=== PATIENT | female | born 1965 | race Caucasian/White ===

== ENCOUNTER 2018-05-23 11:32 | Inpatient (IN) | payer BC ==
[~2018-05-23] VITALS: Ht 167.6 cm; Wt 83.6 kg
[2018-05-23 12:26] LABS: BASO # 0.1 x10^3/uL (0.0-0.2); BASO % 1 % (0-3); EOS # 0.3 x10^3/uL (0.0-0.7); EOS % 4 % (0-3); HEMATOCRIT 33.9 % (36.0-47.0); LYMPH # 1.8 x10^3/uL (1.0-4.8); LYMPH % 24 % (24-48); MEAN CORPUSCULAR HEMOGLOBIN 26 pg (25-35); MEAN CORPUSCULAR HGB CONC 32 g/dL (31-37); MEAN CORPUSCULAR VOLUME 79 fL (79-100); MONO # 0.4 x10^3/uL (0.0-1.1); MONO % 5 % (0-9); NEUT # 5.2 x10^3uL (1.8-7.7); NEUT % 67 % (31-73); PLATELET COUNT 242 x10^3/uL (140-400); RED CELL DISTRIBUTION WIDTH 19.7 % (11.5-14.5); WHITE BLOOD COUNT 7.7 x10^3/uL (4.0-11.0)
[2018-05-23 12:34] LABS: CALCIUM 8.9 mg/dL (8.5-10.1); GFR 58.2; POTASSIUM 4.3 mmol/L (3.5-5.1)
[2018-05-23 12:37] LABS: BILIRUBIN,URINE NEGATIVE (NEG); CLARITY,URINE CLEAR; COLOR,URINE YELLOW; NITRITE,URINE NEGATIVE (NEG); PROTEIN,URINE NEGATIVE (NEG-TRACE); UROBILINOGEN,URINE 0.2 mg/dL (0.2 mg/dL)
[2018-05-23 12:40] LABS: ALBUMIN 3.8 g/dL (3.4-5.0); ALBUMIN/GLOBULIN RATIO 1.4 (1.0-1.7); MAGNESIUM 2.3 mg/dL (1.8-2.4); TOTAL BILIRUBIN 0.2 mg/dL (0.2-1.0); TOTAL PROTEIN 6.6 g/dL (6.4-8.2)
[2018-05-23 12:44] LABS: BACTERIA,URINE FEW /HPF (0-FEW); RBC,URINE 0 /HPF (0-2); WBC,URINE OCC /HPF (0-4)
--- NOTE | 2018-05-23 12:45 | RAD ---
CT of the head without contrast and without comparison for dizziness, nausea, vomiting, false x2. TECHNIQUE: Contiguous helical 5 mm axial images are obtained from the skull base to the vertex. No IV contrast was administered. FINDINGS: There is no evidence of acute territorial infarction, or intracranial hemorrhage. There is no mass, mass effect, or midline shift. The ventricles and subarachnoid spaces are grossly unremarkable. No extra-axial fluid collections are identified. The posterior fossa, brainstem, bilateral orbits, mastoid air cells, and visualized paranasal sinuses are all unremarkable. No significant osseous anomalies are seen. IMPRESSION: 1. No acute intracranial abnormality. Electronically signed by: Art Triplett MD (05/23/2018 12:40 PM) [id number]
--- NOTE | 2018-05-23 12:55 | EKG ---
[facility] [address] [place] [address] Test Date: 2018-05-23 Test Time: 11:59:26 Pat Name: INDER MCKINNON Department: Room: Gender: F Line Server: : 1965 Requested By: PARIS BANKS Order Number: [id number] Reading MD: Measurements Intervals [place] Rate: 60 P: 27 [place]: 180 QRS: -7 QRSD: 78 T: 23 QT: 452 QTc: 456 Interpretive Statements SINUS RHYTHM LEFTWARD AXIS OTHERWISE NORMAL ECG No previous ECG available for comparison
--- NOTE | 2018-05-23 13:05 | RAD ---
PORTABLE CHEST 1V History: DIZZINESS AND FALLS X 2 DAYS. Comparison: None. Cardiomediastinal silhouette: Not grossly enlarged. Lungs: No focal airspace consolidation. Pleura: No evidence of pleural effusion. Pneumothorax: None visualized Support Devices: None. Impression: No acute radiographic findings. Electronically signed by: Chinmay Blair MD (05/23/2018 1:01 PM) [id number]
--- NOTE | 2018-05-23 13:59 | PHYS DOC ---
Past Medical History Past Medical History: Arthritis, DVT, GI Bleed, P.U.D., Other Additional Past Medical Histor: H.PYLORI,ELLERSDEN LOW SYNDROME Past Surgical History: Cholecystectomy, Hysterectomy, Other Additional Past Surgical Histo: R ARM/THUMB,ORIF L HAND Alcohol Use: None Drug Use: None Adult General Chief Complaint Chief Complaint: DIZZY/LIGHT HEADED HPI HPI Patient is a 52 year old female presented to ER today for evaluation of dizziness and shortness of air for a few day. She said whenever she got up and walk, she feels like she will fall due to left-sided weakness. Patient denies any headache. Patient has history of DVT, blood clots in her lung. She is on Eliquis. She denies any abdominal pain, no nausea vomiting. She denies any chest pain. Review of Systems Review of Systems Constitutional: Denies fever or chills [] Eyes: Denies change in visual acuity, redness, or eye pain [] HENT: Denies nasal congestion or sore throat [] Respiratory: Positive for shortness of breath [] Cardiovascular: No additional information not addressed in HPI [] GI: Denies abdominal pain, nausea, vomiting, bloody stools or diarrhea [] : Denies dysuria or hematuria [] Musculoskeletal: Denies back pain or joint pain [] Integument: Denies rash or skin lesions [] Neurologic: Denies headache, focal weakness or sensory changes. POSITIVE FOR DIZZINESS, LEFT SIDE WEAKNESS Endocrine: Denies polyuria or polydipsia [] All other systems were reviewed and found to be within normal limits, except as documented in this note. Current Medications Current Medications Current Medications Medications (Trade) Dose Ordered Sig/Pily Start Time Stop Time Status Last Admin Dose Admin Info (CONTRAST GIVEN -- Rx MONITORING) 1 each PRN DAILY PRN 05/23/18 14:15 05/25/18 14:14 Iohexol (Omnipaque 300 Mg/ml) 100 ml 1X ONCE 05/23/18 14:15 05/23/18 14:16 DC 05/23/18 14:30 100 ML Ondansetron HCl (Zofran) 4 mg PRN Q8HRS PRN 05/23/18 15:15 05/24/18 15:14 Allergies Allergies Allergies Coded Allergies Type Severity Reaction Last Updated Verified Penicillins Allergy Unknown 05/23/18 Yes Physical Exam Physical Exam Constitutional: Well developed, well nourished, no acute distress, non-toxic appearance. [] HENT: Normocephalic, atraumatic, bilateral external ears normal, oropharynx moist, no oral exudates, nose normal. [] Eyes: PERRLA, EOMI, conjunctiva normal, no discharge. [] Neck: Normal range of motion, no tenderness, supple, no stridor. [] Cardiovascular:Heart rate regular rhythm, no murmur [] Lungs & Thorax: Bilateral breath sounds clear to auscultation [] Abdomen: Bowel sounds normal, soft, no tenderness, no masses, no pulsatile masses. [] Skin: Warm, dry, no erythema, no rash. [] Back: No tenderness, no CVA tenderness. [] Extremities: No tenderness, no cyanosis, no clubbing, ROM intact, no edema. [] Neurologic: Alert and oriented X 3, normal motor function, normal sensory function, no focal deficits noted. [] Psychologic: Affect normal, judgement normal, mood normal. [] Current Patient Data Vital Signs Vital Signs Date Time Temp Pulse Resp B/P (MAP) Pulse Ox O2 Delivery O2 Flow Rate FiO2 05/23/18 12:14 62 12 100 05/23/18 11:40 98.3 136/78 (97) Room Air 98.3 Lab Values Laboratory Tests Test 05/23/18 11:56 05/23/18 12:05 05/23/18 12:30 Glucose (Fingerstick) 91 mg/dL (70-99) White Blood Count 7.7 x10^3/uL (4.0-11.0) Red Blood Count 4.30 x10^6/uL (3.50-5.40) Hemoglobin 11.0 g/dL (12.0-15.5) L Hematocrit 33.9 % (36.0-47.0) L Mean Corpuscular Volume 79 fL (79-100) Mean Corpuscular Hemoglobin 26 pg (25-35) Mean Corpuscular Hemoglobin Concent 32 g/dL (31-37) Red Cell Distribution Width 19.7 % (11.5-14.5) H Platelet Count 242 x10^3/uL (140-400) Neutrophils (%) (Auto) 67 % (31-73) Lymphocytes (%) (Auto) 24 % (24-48) Monocytes (%) (Auto) 5 % (0-9) Eosinophils (%) (Auto) 4 % (0-3) H Basophils (%) (Auto) 1 % (0-3) Neutrophils # (Auto) 5.2 x10^3uL (1.8-7.7) Lymphocytes # (Auto) 1.8 x10^3/uL (1.0-4.8) Monocytes # (Auto) 0.4 x10^3/uL (0.0-1.1) Eosinophils # (Auto) 0.3 x10^3/uL (0.0-0.7) Basophils # (Auto) 0.1 x10^3/uL (0.0-0.2) Sodium Level 144 mmol/L (136-145) Potassium Level 4.3 mmol/L (3.5-5.1) Chloride Level 105 mmol/L (98-107) Carbon Dioxide Level 30 mmol/L (21-32) Anion Gap 9 (6-14) Blood Urea Nitrogen 13 mg/dL (7-20) Creatinine 1.0 mg/dL (0.6-1.0) Estimated GFR (Cockcroft-Gault) 58.2 BUN/Creatinine Ratio 13 (6-20) Glucose Level 98 mg/dL (70-99) Calcium Level 8.9 mg/dL (8.5-10.1) Magnesium Level 2.3 mg/dL (1.8-2.4) Total Bilirubin 0.2 mg/dL (0.2-1.0) Aspartate Amino Transferase (AST) 12 U/L (15-37) L Alanine Aminotransferase (ALT) 16 U/L (14-59) Alkaline Phosphatase 139 U/L (46-116) H Troponin I Quantitative < 0.017 ng/mL (0.000-0.055) Total Protein 6.6 g/dL (6.4-8.2) Albumin 3.8 g/dL (3.4-5.0) Albumin/Globulin Ratio 1.4 (1.0-1.7) Urine Collection Type Unknown Urine Color Yellow Urine Clarity Clear Urine pH 7.0 Urine Specific [place] 1.010 Urine Protein Negative mg/dL (NEG-TRACE) Urine Glucose (UA) Negative mg/dL (NEG) Urine Ketones (Stick) Negative mg/dL (NEG) Urine Blood Negative (NEG) Urine Nitrite Negative (NEG) Urine Bilirubin Negative (NEG) Urine Urobilinogen Dipstick 0.2 mg/dL (0.2 mg/dL) Urine Leukocyte Esterase Trace (NEG) Urine RBC 0 /HPF (0-2) Urine WBC Occ /HPF (0-4) Urine Bacteria Few /HPF (0-FEW) Laboratory Tests 05/23/18 12:05 Laboratory Tests 05/23/18 12:05 EKG EKG EKG: RATE OF 61 BPM, SINUS RHYTHM, NO STEMI. Radiology/Procedures Radiology/Procedures [][address] [address] IMAGING REPORT Signed PATIENT: INDER MCKINNON ACCOUNT: [id number] : 1965 LOCATION: ER AGE: 52 SEX: F EXAM STATUS: PRE ER ORD. PHYSICIAN: PARIS BANKS DO REASON: DIZZINESS PROCEDURE: CT HEAD WO CONTRAST CT of the head without contrast and without comparison for dizziness, nausea, vomiting, false x2. TECHNIQUE: Contiguous helical 5 mm axial images are obtained from the skull base to the vertex. No IV contrast was administered. FINDINGS: There is no evidence of acute territorial infarction, or intracranial hemorrhage. There is no mass, mass effect, or midline shift. The ventricles and subarachnoid spaces are grossly unremarkable. No extra-axial fluid collections are identified. The posterior fossa, brainstem, bilateral orbits, mastoid air cells, and visualized paranasal sinuses are all unremarkable. No significant osseous anomalies are seen. IMPRESSION: 1. No acute intracranial abnormality. Electronically signed by: Art Estrada MD (05/23/2018 12:40 PM) [facility] DICTATED and SIGNED BY: ART ESTRADA MD DATE: 05/23/[address] [id number] IMAGING REPORT Signed PATIENT: INDER MCKINNON ACCOUNT: [id number] : 1965 LOCATION: ER AGE: 52 SEX: F EXAM STATUS: REG ER ORD. PHYSICIAN: PARIS BANKS DO REASON: SHORTNESS OF AIR, DIZZINESS, SYNCOPE, HX OF PE PROCEDURE: CT ANGIOGRAPHY CHEST Examination: CT angiography chest HISTORY: History of pulmonary embolism, dizziness COMPARISON: None available Exposure: One or more of the following individualized dose reduction techniques were utilized for this examination: 1. Automated exposure control 2. Adjustment of the mA and/or kV according to patient size 3. Use of iterative reconstruction technique TECHNIQUE: Axial CT angiography images of chest were performed with IV contrast. Coronal and sagittal 3-D MIP reformats are performed FINDINGS: The central airways are patent. The heart size grossly appears unremarkable. The ascending aorta measures 4 cm in transverse dimension. There is no evidence of filling defect identified in the main pulmonary arterial trunk and right and left main pulmonary arteries and the visualized lobar, segmental branches of the pulmonary arteries. Minimal bibasilar lung atelectasis. The visualized liver, spleen, adrenals grossly appears unremarkable. Mild degenerative changes thoracic spine. IMPRESSION: 1. No evidence of pulmonary embolism. 2. Mild ascending aortic aneurysm. Electronically signed by: Nelson Terrazas MD (05/23/2018 2:44 PM) [id number] DICTATED and SIGNED BY: NELSON TERRAZAS MD DATE: 05/23/18 1438 Course & Med Decision Making Course & Med Decision Making Pertinent Labs and Imaging studies reviewed. (See chart for details) [] Dragon Disclaimer Dragon Disclaimer This electronic medical record was generated, in whole or in part, using a voice recognition dictation system. Departure Departure Impression: Primary Impression: Dizziness Additional Impressions: Dyspnea Left-sided weakness Disposition: 09 ADMITTED INPATIENT Admitting Physician: Brown Velez Problem Qualifiers PARIS BANKS DO May 23, 2018 13:59
[2018-05-23] MEDS ORDERED: IOHEXOL 300 MG/ML 100ML VIAL. IV ONE (14:15)
[2018-05-23] MEDS ORDERED: CONTRAST GIVEN. MC PRN (14:15)
--- NOTE | 2018-05-23 14:48 | RAD ---
Examination: CT angiography chest HISTORY: History of pulmonary embolism, dizziness COMPARISON: None available Exposure: One or more of the following individualized dose reduction techniques were utilized for this examination: 1. Automated exposure control 2. Adjustment of the mA and/or kV according to patient size 3. Use of iterative reconstruction technique TECHNIQUE: Axial CT angiography images of chest were performed with IV contrast. Coronal and sagittal 3-D MIP reformats are performed FINDINGS: The central airways are patent. The heart size grossly appears unremarkable. The ascending aorta measures 4 cm in transverse dimension. There is no evidence of filling defect identified in the main pulmonary arterial trunk and right and left main pulmonary arteries and the visualized lobar, segmental branches of the pulmonary arteries. Minimal bibasilar lung atelectasis. The visualized liver, spleen, adrenals grossly appears unremarkable. Mild degenerative changes thoracic spine. IMPRESSION: 1. No evidence of pulmonary embolism. 2. Mild ascending aortic aneurysm. Electronically signed by: Nelson Terrazas MD (05/23/2018 2:44 PM) [id number]
[2018-05-23] MEDS ORDERED: ONDANSETRON PF 4 MG/2 ML VIAL. IV PRN (15:15)
--- NOTE | 2018-05-23 15:40 | PDOC1 ---
History and Physical Date of Admission Date of Admission DATE: 05/23/18 TIME: 15:39 Identification/Chief Complaint Chief Complaint seen in er , 52 year old female presented to ER today for evaluation of dizziness and SOA, FREQUENT FALLS, LEFT SIDED WEAKNESS She said whenever she got up and walk, she feels like she will fall due to left-sided weakness. Patient denies any headache. Patient has history of DVT, blood clots in her lung, is on Eliquis. She denies any abdominal pain, no nausea vomiting. She denies any chest pain., has fallen several times in last 24 hrs Past Medical History Past Medical History Past Medical History Past Medical History: Arthritis, DVT, GI Bleed, P.U.D., Other Additional Past Medical Histor: H.PYLORI,ELLERSDEN LOW SYNDROME Past Surgical History: Cholecystectomy, Hysterectomy, Other Additional Past Surgical Histo: R ARM/THUMB,ORIF L HAND Alcohol Use: None Drug Use: None FAMILY HX OBESITY Pulmonary: Pulmonary embolus Family History Family History: High Cholestrol Family History: Parent Social History Smoke: No ALCOHOL: none Drugs: None Current Problem List Problem List Problems Medical Problems: (1) Dizziness Status: Acute Current Medications Current Medications Current Medications Iohexol (Omnipaque 300 Mg/ml) 100 ml 1X ONCE IV Last administered on at 14:30; Start 05/23/18 at 14:15; Stop 05/23/18 at 14:16; Status DC Info (CONTRAST GIVEN -- Rx MONITORING) 1 each PRN DAILY PRN MC SEE COMMENTS; Start 05/23/18 at 14:15; Stop 05/25/18 at 14:14 Ondansetron HCl (Zofran) 4 mg PRN Q8HRS PRN IV NAUSEA/VOMITING; Start at 15:15; Stop 05/24/18 at 15:14 Allergies Allergies: Coded Allergies: Penicillins (Verified Allergy, Unknown, 05/23/18) ROS Review of System Review of Systems Review of Systems Constitutional: Denies fever or chills [] Eyes: Denies change in visual acuity, redness, or eye pain [] HENT: Denies nasal congestion or sore throat [] Respiratory: Positive for shortness of breath [] Cardiovascular: No additional information not addressed in HPI [] GI: Denies abdominal pain, nausea, vomiting, bloody stools or diarrhea [] : Denies dysuria or hematuria [] Musculoskeletal: Denies back pain or joint pain [] Integument: Denies rash or skin lesions [] Neurologic: Denies headache, focal weakness or sensory changes. POSITIVE FOR DIZZINESS, LEFT SIDE WEAKNESS Endocrine: Denies polyuria or polydipsia [] 14 PT systems were reviewed and found to be within normal limits, except as documented Physical Exam Physical Exam Physical Exam Physical Exam Constitutional: Well developed, well nourished, no acute distress, non-toxic appearance. [] HENT: Normocephalic, atraumatic, bilateral external ears normal, oropharynx moist, no oral exudates, nose normal. [] Eyes: PERRLA, EOMI, conjunctiva normal, no discharge. [] Neck: Normal range of motion, no tenderness, supple, no stridor. [] Cardiovascular:Heart rate regular rhythm, no murmur [] Lungs & Thorax: Bilateral breath sounds clear to auscultation [] Abdomen: Bowel sounds normal, soft, no tenderness, no masses, no pulsatile masses. [] Skin: Warm, dry, no erythema, no rash. [] Back: No tenderness, no CVA tenderness. [] Extremities: No tenderness, no cyanosis, no clubbing, ROM intact, no edema. [] Neurologic: Alert and oriented X 3, normal motor function, normal sensory function, no focal deficits noted. [] Psychologic: Affect normal, judgement normal, mood normal. [] General: Alert, Oriented X3, Cooperative HEENT: Atraumatic, PERRLA Lungs: Clear to auscultation, Normal air movement Heart: S1S2 Breasts: Not examined Abdomen: Normal bowel sounds, Soft Rectal Exam: not examined PELVIC: Examination not indicated Extremities: No clubbing, No cyanosis Skin: No breakdown Neuro: Normal speech, Cranial nerves 3-12 NL Psych/Mental Status: Mental status NL, Mood NL Vitals Vitals Vital Signs Date Time Temp Pulse Resp B/P (MAP) Pulse Ox O2 Delivery O2 Flow Rate FiO2 05/23/18 12:14 62 12 100 05/23/18 11:40 98.3 136/78 (97) Room Air 98.3 Labs Labs Laboratory Tests Test 05/23/18 11:56 05/23/18 12:05 12/21/18 12:30 Glucose (Fingerstick) 91 mg/dL (70-99) White Blood Count 7.7 x10^3/uL (4.0-11.0) Red Blood Count 4.30 x10^6/uL (3.50-5.40) Hemoglobin 11.0 g/dL (12.0-15.5) Hematocrit 33.9 % (36.0-47.0) Mean Corpuscular Volume 79 fL (79-100) Mean Corpuscular Hemoglobin 26 pg (25-35) Mean Corpuscular Hemoglobin Concent 32 g/dL (31-37) Red Cell Distribution Width 19.7 % (11.5-14.5) Platelet Count 242 x10^3/uL (140-400) Neutrophils (%) (Auto) 67 % (31-73) Lymphocytes (%) (Auto) 24 % (24-48) Monocytes (%) (Auto) 5 % (0-9) Eosinophils (%) (Auto) 4 % (0-3) Basophils (%) (Auto) 1 % (0-3) Neutrophils # (Auto) 5.2 x10^3uL (1.8-7.7) Lymphocytes # (Auto) 1.8 x10^3/uL (1.0-4.8) Monocytes # (Auto) 0.4 x10^3/uL (0.0-1.1) Eosinophils # (Auto) 0.3 x10^3/uL (0.0-0.7) Basophils # (Auto) 0.1 x10^3/uL (0.0-0.2) Sodium Level 144 mmol/L (136-145) Potassium Level 4.3 mmol/L (3.5-5.1) Chloride Level 105 mmol/L (98-107) Carbon Dioxide Level 30 mmol/L (21-32) Anion Gap 9 (6-14) Blood Urea Nitrogen 13 mg/dL (7-20) Creatinine 1.0 mg/dL (0.6-1.0) Estimated GFR (Cockcroft-Gault) 58.2 BUN/Creatinine Ratio 13 (6-20) Glucose Level 98 mg/dL (70-99) Calcium Level 8.9 mg/dL (8.5-10.1) Magnesium Level 2.3 mg/dL (1.8-2.4) Total Bilirubin 0.2 mg/dL (0.2-1.0) Aspartate Amino Transf (AST/SGOT) 12 U/L (15-37) Alanine Aminotransferase (ALT/SGPT) 16 U/L (14-59) Alkaline Phosphatase 139 U/L (46-116) Troponin I Quantitative < 0.017 ng/mL (0.000-0.055) Total Protein 6.6 g/dL (6.4-8.2) Albumin 3.8 g/dL (3.4-5.0) Albumin/Globulin Ratio 1.4 (1.0-1.7) Urine Collection Type Unknown Urine Color Yellow Urine Clarity Clear Urine pH 7.0 Urine Specific [place] 1.010 Urine Protein Negative mg/dL (NEG-TRACE) Urine Glucose (UA) Negative mg/dL (NEG) Urine Ketones (Stick) Negative mg/dL (NEG) Urine Blood Negative (NEG) Urine Nitrite Negative (NEG) Urine Bilirubin Negative (NEG) Urine Urobilinogen Dipstick 0.2 mg/dL (0.2 mg/dL) Urine Leukocyte Esterase Trace (NEG) Urine RBC 0 /HPF (0-2) Urine WBC Occ /HPF (0-4) Urine Bacteria Few /HPF (0-FEW) Laboratory Tests Test 05/23/18 11:56 05/23/18 12:05 05/23/18 12:30 Glucose (Fingerstick) 91 mg/dL (70-99) White Blood Count 7.7 x10^3/uL (4.0-11.0) Red Blood Count 4.30 x10^6/uL (3.50-5.40) Hemoglobin 11.0 g/dL (12.0-15.5) Hematocrit 33.9 % (36.0-47.0) Mean Corpuscular Volume 79 fL (79-100) Mean Corpuscular Hemoglobin 26 pg (25-35) Mean Corpuscular Hemoglobin Concent 32 g/dL (31-37) Red Cell Distribution Width 19.7 % (11.5-14.5) Platelet Count 242 x10^3/uL (140-400) Neutrophils (%) (Auto) 67 % (31-73) Lymphocytes (%) (Auto) 24 % (24-48) Monocytes (%) (Auto) 5 % (0-9) Eosinophils (%) (Auto) 4 % (0-3) Basophils (%) (Auto) 1 % (0-3) Neutrophils # (Auto) 5.2 x10^3uL (1.8-7.7) Lymphocytes # (Auto) 1.8 x10^3/uL (1.0-4.8) Monocytes # (Auto) 0.4 x10^3/uL (0.0-1.1) Eosinophils # (Auto) 0.3 x10^3/uL (0.0-0.7) Basophils # (Auto) 0.1 x10^3/uL (0.0-0.2) Sodium Level 144 mmol/L (136-145) Potassium Level 4.3 mmol/L (3.5-5.1) Chloride Level 105 mmol/L (98-107) Carbon Dioxide Level 30 mmol/L (21-32) Anion Gap 9 (6-14) Blood Urea Nitrogen 13 mg/dL (7-20) Creatinine 1.0 mg/dL (0.6-1.0) Estimated GFR (Cockcroft-Gault) 58.2 BUN/Creatinine Ratio 13 (6-20) Glucose Level 98 mg/dL (70-99) Calcium Level 8.9 mg/dL (8.5-10.1) Magnesium Level 2.3 mg/dL (1.8-2.4) Total Bilirubin 0.2 mg/dL (0.2-1.0) Aspartate Amino Transf (AST/SGOT) 12 U/L (15-37) Alanine Aminotransferase (ALT/SGPT) 16 U/L (14-59) Alkaline Phosphatase 139 U/L (46-116) Troponin I Quantitative < 0.017 ng/mL (0.000-0.055) Total Protein 6.6 g/dL (6.4-8.2) Albumin 3.8 g/dL (3.4-5.0) Albumin/Globulin Ratio 1.4 (1.0-1.7) Urine Collection Type Unknown Urine Color Yellow Urine Clarity Clear Urine pH 7.0 Urine Specific [place] 1.010 Urine Protein Negative mg/dL (NEG-TRACE) Urine Glucose (UA) Negative mg/dL (NEG) Urine Ketones (Stick) Negative mg/dL (NEG) Urine Blood Negative (NEG) Urine Nitrite Negative (NEG) Urine Bilirubin Negative (NEG) Urine Urobilinogen Dipstick 0.2 mg/dL (0.2 mg/dL) Urine Leukocyte Esterase Trace (NEG) Urine RBC 0 /HPF (0-2) Urine WBC Occ /HPF (0-4) Urine Bacteria Few /HPF (0-FEW) Images Images Examination: CT angiography chest HISTORY: History of pulmonary embolism, dizziness COMPARISON: None available Exposure: One or more of the following individualized dose reduction techniques were utilized for this examination: 1. Automated exposure control 2. Adjustment of the mA and/or kV according to patient size 3. Use of iterative reconstruction technique TECHNIQUE: Axial CT angiography images of chest were performed with IV contrast. Coronal and sagittal 3-D MIP reformats are performed FINDINGS: The central airways are patent. The heart size grossly appears unremarkable. The ascending aorta measures 4 cm in transverse dimension. There is no evidence of filling defect identified in the main pulmonary arterial trunk and right and left main pulmonary arteries and the visualized lobar, segmental branches of the pulmonary arteries. Minimal bibasilar lung atelectasis. The visualized liver, spleen, adrenals grossly appears unremarkable. Mild degenerative changes thoracic spine. IMPRESSION: 1. No evidence of pulmonary embolism. 2. Mild ascending aortic aneurysm. Electronically signed by: Nelson Terrazas MD (05/23/2018 2:44 PM) [id number] VTE Prophylaxis Ordered VTE Prophylaxis Devices: Yes VTE Pharmacological Prophylaxi: Yes Assessment/Plan Assessment/Plan IMPRESSION 1. ACUTE left sided weakness 2. frequent falls, gait instability, new 3. dizziness 4. No evidence of pulmonary embolism. 5. Mild ascending aortic aneurysm. plan tele mri head BARBARA neurology consult neurochecks q 4 hrs cont home meds PT/OT KYLEE GARCIA MD May 23, 2018 15:40
[2018-05-23] MEDS ORDERED: APIX5TAB PO (16:39)
[2018-05-23] MEDS ORDERED: LEXAPRO20 MG PO (16:39)
[2018-05-23] MEDS ORDERED: BUPR300T3 PO (16:40)
[2018-05-23 16:41] VITALS: BP 125/75
[2018-05-23] MEDS ORDERED: PANT40GR PO (16:41)
[2018-05-23] MEDS ORDERED: SIMV10TA3 PO (16:41)
[2018-05-23] MEDS ORDERED: CRAN250C PO (16:43)
[2018-05-23] MEDS ORDERED: CYAN500T17 PO (16:45)
[2018-05-23] MEDS ORDERED: ALPR1TAB2 PO (16:45)
[2018-05-23] MEDS ORDERED: ALPRAZolam 0.5 MG TABLET PO PRN (17:30)
[2018-05-23] MEDS: HYDROcodone/APAP 5/325MG 1 TAB TABLET PO PRN ×2 (17:35→21:04)
--- NOTE | 2018-05-23 17:37 | RAD ---
HIP LEFT 2V WITH PELVIS History: FALL WITH LEFT HIP PAIN. Comparison: None are available AP pelvis and 2 view left hip were obtained. No definite acute fracture. No evidence of dislocation. Note that a portion of the pelvis is obscured by contrast-filled urinary bladder. IMPRESSION: No evidence of acute fracture or dislocation. Electronically signed by: Chinmay Blair MD (05/23/2018 5:33 PM) [id number]
[2018-05-23] MEDS ORDERED: NON FORMULARY ITEM (Cranberry Extract (Cranberry) 250 MG) PO PRN (17:45)
[2018-05-23 19:05] VITALS: BP 118/47
--- NOTE | 2018-05-23 19:43 | RAD ---
Examination: BRAIN W/O CONTRAST History: LEFT SIDED WEAKNESS, LEFT LEG IS WORSE, DIZZINESS, MULTIPLE FALLS, X 1 DAY, DENTAL WORK IS PERMANENT, PLEASE CALL RESULTS TO [facility] 6S [id number] Comparison/Correlation: None Findings: Multiplanar, multisequence images of the brain were obtained. Due to dental artifact, significant limitation in imaging of the anterior aspect of the cerebrum is noted on diffusion-weighted imaging. This may limit assessment for acute infarct as a result in this region. Ventricles are normal size. No midline shift or mass effect. [place] matter-white matter differentiation is normal. No infarct suspected on this limited exam. Impression: Unremarkable although limited MRI of the brain without contrast exam. Electronically signed by: Florin Ratliff MD (05/23/2018 7:39 PM) [facility]
--- NOTE | 2018-05-23 19:49 | PDOC2 ---
NEUROLOGY CONSULT Date of Admission Date of Admission DATE: 05/23/18 TIME: 19:28 Reason for Consult Reason for Consult: IMPRESSION: Left side weakness. Dizziness. Falls. HLD. PE Hx. DVT Hx. Ellersden Low syndrome? Obesity. No evidence of acute CVA this time. RECOMMENDATIONS/PLAN: Continue Eliquis 5 mg bid. Continue Zocor HS. Lab: see orders. Brain MRI on 05/23: no acute findings. HISTORY OF THE PRESENT ILLNESS: 52-y-old female patient with Hx of DVT and PE and was treated with Coumadin for about 7 years then switched to Eliquis in 2017 due to difficult with INR level. She developed symptoms of dizziness and left side weakness to come to the ER of [facility] for evaluation. 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 Past Medical History Arthritis, DVT, GI Bleed, P.U.D.,H.PYLORI,ELLERSDEN LOW SYNDROME, Pulmonary embolus PAST SURGERY HISTORY: Cholecystectomy, Hysterectomy, R ARM/THUMB,ORIF L HAND Family History High Cholestrol in parent Allergies Coded Allergies: Penicillins (Verified Allergy, Unknown, 05/23/18) MEDICATIONS: Refer to [facility] SOCIAL HISTORY: Lives at home. Denies smoking, drinking, and illicit drug use. REVIEW OF SYSTEMS: Constitutional: Obesity. Head: No recent traumatic brain or head injury. Skin: No edema, or rash. Ear: No infection. Eyes: No vision loss or color blindness. Nose: No bleeding or purulent discharges. Hearing: No hearing decrease. Neck: No injury. Breast: No history of cancer, masses,or discharges. Cardiac: HLD. Pulmonary: PE. GI: GI bleeding. Urinary/genital: UTI. Endocrinologic: Obesity. Skeletomuscular: No muscular atrophy, deformity. Neurological: see HP. Psychiatric: Denies drug use/abuse. Otherwise, not [id number] review of systems. PHYSICAL EXAMINATION: General appearance is in mild acute distress. HEENT: Normocephalic and nontraumatic. Eyes, nose, ears, and throat are unremarkable. Neck is supple. No lymphadenopathy. No bruits are heard over the carotid artery. No crepitus. Cardiovascular: S1, S2, regular rate and rhythm. Pulmonary: Clear to auscultation bilaterally. Abdomen: Bowel sounds are positive. Abdomen is soft, nontender, and nondistended. Extremities: No rash, lesions, or edema. No restriction of range of motion NEUROLOGICAL EXAMINATION: Alert Oriented to time, place and person. PERRL. EOMI. CN: no focal findings. Muscle tone: within normal. Muscle strength: 5- left LE? 5 the rest. DTR: 2 Plantar reflex: Flexor response bilaterally Gait: not examined in bed. Sensory exam: no abnormal findings. No cerebellar signs elicited. F-T-N test fine. Current Medications Current Medications Current Medications Iohexol (Omnipaque 300 Mg/ml) 100 ml 1X ONCE IV Last administered on at 14:30; Start 05/23/18 at 14:15; Stop 05/23/18 at 14:16; Status DC Info (CONTRAST GIVEN -- Rx MONITORING) 1 each PRN DAILY PRN MC SEE COMMENTS; Start 05/23/18 at 14:15; Stop 05/25/18 at 14:14 Ondansetron HCl (Zofran) 4 mg PRN Q8HRS PRN IV NAUSEA/VOMITING; Start at 15:15; Stop 05/24/18 at 15:14 Acetaminophen/ Hydrocodone Bitart (Lortab 5/325) 1 tab PRN Q4HRS PRN PO PAIN Last administered on 05/23/18at 17:35; Start 05/23/18 at 17:30 Alprazolam (Xanax) 0.5 mg PRN TID PRN PO ANXIETY / AGITATION Last administered on 05/23/18at 17:34; Start 05/23/18 at 17:30; Stop 05/23/18 at 17:41; Status DC Alprazolam (Xanax) 1 mg BID PRN PO ANXIETY; Start 05/23/18 at 17:45 Apixaban (Eliquis) 5 mg BID PO ; Start 05/23/18 at 21:00 Simvastatin (Zocor) 10 mg QHS PO ; Start 05/23/18 at 21:00 Bupropion HCl (Wellbutrin Xl) 300 mg DAILY PO ; Start 05/24/18 at 09:00 Non-Formulary Medication (Cranberry Extract (Cranberry)) 250 mg DAILY PRN PO PROPHYLAXIS; Start 05/23/18 at 17:45; Status UNV Cyanocobalamin (Vitamin B-12) 500 mcg DAILY PO ; Start 05/24/18 at 09:00 Pantoprazole Sodium (Protonix) 40 mg DAILYAC PO ; Start 05/24/18 at 07:30 Active Scripts Active Reported Xanax (Alprazolam) 1 Mg Tablet 1 Tab PO BID PRN B-12 (Cyanocobalamin (Vitamin B-12)) 500 Mcg Tablet 500 Mcg PO DAILY PRN Cranberry (Cranberry Extract) 250 Mg Capsule 250 Mg PO DAILY PRN Protonix (Pantoprazole Sodium) 40 Mg Granpkt.dr 40 Mg PO DAILY PRN Simvastatin 10 Mg Tablet 1 Tab PO QHS PRN Wellbutrin Xl (Bupropion Hcl) 300 Mg Tab.er.24h 1 Tab PO DAILY PRN Lexapro (Escitalopram Oxalate) 20 Mg Tablet 60 Mg PO DAILY PRN Eliquis (Apixaban) 5 Mg Tablet 5 Mg PO BID Allergies Allergies: Allergies Coded Allergies Type Severity Reaction Last Updated Verified Penicillins Allergy Unknown 05/23/18 Yes ROS Review of System The patient denies any associated fevers, chills, headache, ear pain, rhinorrhea , sore throat, stiff neck, productive cough, chest pain, shortness of breath, back or flank pain, abdominal pain, nausea, vomiting, diarrhea, constipation, dysuria, rash, numbness, weakness, tingling, incontinence, difficulty ambulating, or diaphoresis. Physical Exam Physical Exam General: Well developed, well nourished, no acute distress, well appearing HEENT: Pupils equally round and reactive to light, EOMI, no discharge, normal conjunctiva Neck: Supple, no nuchal rigidity, no JVD, trachea midline, no tenderness Cardiac: RRR, no murmurs, no gallops, no rubs Chest/Lungs: CTAB, no wheeze, no rhonchi, no crackles Abdomen: soft, non-distended, no guarding, no peritoneal signs, non-tender Back: No tenderness Extremities: no edema, pulses intact, non-tender,capillary refill <3 sec bilateral upper and lower extremities, Neuro: Alert and oriented x 4, no focal deficits, normal speech Vitals Vitals: Vital Signs Date Time Temp Pulse Resp B/P (MAP) Pulse Ox O2 Delivery O2 Flow Rate FiO2 05/23/18 18:24 Nasal Cannula 2.0 05/23/18 17:27 98 05/23/18 16:41 98.1 67 18 125/75 (92) 98.1 Labs Labs Laboratory Tests Test 05/23/18 11:56 05/23/18 12:05 05/23/18 12:30 Glucose (Fingerstick) 91 mg/dL (70-99) White Blood Count 7.7 x10^3/uL (4.0-11.0) Red Blood Count 4.30 x10^6/uL (3.50-5.40) Hemoglobin 11.0 g/dL (12.0-15.5) Hematocrit 33.9 % (36.0-47.0) Mean Corpuscular Volume 79 fL (79-100) Mean Corpuscular Hemoglobin 26 pg (25-35) Mean Corpuscular Hemoglobin Concent 32 g/dL (31-37) Red Cell Distribution Width 19.7 % (11.5-14.5) Platelet Count 242 x10^3/uL (140-400) Neutrophils (%) (Auto) 67 % (31-73) Lymphocytes (%) (Auto) 24 % (24-48) Monocytes (%) (Auto) 5 % (0-9) Eosinophils (%) (Auto) 4 % (0-3) Basophils (%) (Auto) 1 % (0-3) Neutrophils # (Auto) 5.2 x10^3uL (1.8-7.7) Lymphocytes # (Auto) 1.8 x10^3/uL (1.0-4.8) Monocytes # (Auto) 0.4 x10^3/uL (0.0-1.1) Eosinophils # (Auto) 0.3 x10^3/uL (0.0-0.7) Basophils # (Auto) 0.1 x10^3/uL (0.0-0.2) Sodium Level 144 mmol/L (136-145) Potassium Level 4.3 mmol/L (3.5-5.1) Chloride Level 105 mmol/L (98-107) Carbon Dioxide Level 30 mmol/L (21-32) Anion Gap 9 (6-14) Blood Urea Nitrogen 13 mg/dL (7-20) Creatinine 1.0 mg/dL (0.6-1.0) Estimated GFR (Cockcroft-Gault) 58.2 BUN/Creatinine Ratio 13 (6-20) Glucose Level 98 mg/dL (70-99) Calcium Level 8.9 mg/dL (8.5-10.1) Magnesium Level 2.3 mg/dL (1.8-2.4) Total Bilirubin 0.2 mg/dL (0.2-1.0) Aspartate Amino Transf (AST/SGOT) 12 U/L (15-37) Alanine Aminotransferase (ALT/SGPT) 16 U/L (14-59) Alkaline Phosphatase 139 U/L (46-116) Troponin I Quantitative < 0.017 ng/mL (0.000-0.055) Total Protein 6.6 g/dL (6.4-8.2) Albumin 3.8 g/dL (3.4-5.0) Albumin/Globulin Ratio 1.4 (1.0-1.7) Urine Collection Type Unknown Urine Color Yellow Urine Clarity Clear Urine pH 7.0 Urine Specific [place] 1.010 Urine Protein Negative mg/dL (NEG-TRACE) Urine Glucose (UA) Negative mg/dL (NEG) Urine Ketones (Stick) Negative mg/dL (NEG) Urine Blood Negative (NEG) Urine Nitrite Negative (NEG) Urine Bilirubin Negative (NEG) Urine Urobilinogen Dipstick 0.2 mg/dL (0.2 mg/dL) Urine Leukocyte Esterase Trace (NEG) Urine RBC 0 /HPF (0-2) Urine WBC Occ /HPF (0-4) Urine Bacteria Few /HPF (0-FEW) Laboratory Tests Test 05/23/18 11:56 05/23/18 12:05 05/23/18 12:30 Glucose (Fingerstick) 91 mg/dL (70-99) White Blood Count 7.7 x10^3/uL (4.0-11.0) Red Blood Count 4.30 x10^6/uL (3.50-5.40) Hemoglobin 11.0 g/dL (12.0-15.5) Hematocrit 33.9 % (36.0-47.0) Mean Corpuscular Volume 79 fL (79-100) Mean Corpuscular Hemoglobin 26 pg (25-35) Mean Corpuscular Hemoglobin Concent 32 g/dL (31-37) Red Cell Distribution Width 19.7 % (11.5-14.5) Platelet Count 242 x10^3/uL (140-400) Neutrophils (%) (Auto) 67 % (31-73) Lymphocytes (%) (Auto) 24 % (24-48) Monocytes (%) (Auto) 5 % (0-9) Eosinophils (%) (Auto) 4 % (0-3) Basophils (%) (Auto) 1 % (0-3) Neutrophils # (Auto) 5.2 x10^3uL (1.8-7.7) Lymphocytes # (Auto) 1.8 x10^3/uL (1.0-4.8) Monocytes # (Auto) 0.4 x10^3/uL (0.0-1.1) Eosinophils # (Auto) 0.3 x10^3/uL (0.0-0.7) Basophils # (Auto) 0.1 x10^3/uL (0.0-0.2) Sodium Level 144 mmol/L (136-145) Potassium Level 4.3 mmol/L (3.5-5.1) Chloride Level 105 mmol/L (98-107) Carbon Dioxide Level 30 mmol/L (21-32) Anion Gap 9 (6-14) Blood Urea Nitrogen 13 mg/dL (7-20) Creatinine 1.0 mg/dL (0.6-1.0) Estimated GFR (Cockcroft-Gault) 58.2 BUN/Creatinine Ratio 13 (6-20) Glucose Level 98 mg/dL (70-99) Calcium Level 8.9 mg/dL (8.5-10.1) Magnesium Level 2.3 mg/dL (1.8-2.4) Total Bilirubin 0.2 mg/dL (0.2-1.0) Aspartate Amino Transf (AST/SGOT) 12 U/L (15-37) Alanine Aminotransferase (ALT/SGPT) 16 U/L (14-59) Alkaline Phosphatase 139 U/L (46-116) Troponin I Quantitative < 0.017 ng/mL (0.000-0.055) Total Protein 6.6 g/dL (6.4-8.2) Albumin 3.8 g/dL (3.4-5.0) Albumin/Globulin Ratio 1.4 (1.0-1.7) Urine Collection Type Unknown Urine Color Yellow Urine Clarity Clear Urine pH 7.0 Urine Specific [place] 1.010 Urine Protein Negative mg/dL (NEG-TRACE) Urine Glucose (UA) Negative mg/dL (NEG) Urine Ketones (Stick) Negative mg/dL (NEG) Urine Blood Negative (NEG) Urine Nitrite Negative (NEG) Urine Bilirubin Negative (NEG) Urine Urobilinogen Dipstick 0.2 mg/dL (0.2 mg/dL) Urine Leukocyte Esterase Trace (NEG) Urine RBC 0 /HPF (0-2) Urine WBC Occ /HPF (0-4) Urine Bacteria Few /HPF (0-FEW) GEO MÁRQUEZ MD May 23, 2018 19:49
[2018-05-23] MEDS: APIXABAN 5 MG TABLET. PO SCH (21:04)
[2018-05-23] MEDS: SIMVASTATIN 10 MG TABLET PO SCH (21:04)
[2018-05-23] MEDS: ALPRAZolam 1 MG TABLET PO PRN (21:05)
[2018-05-23 23:28] VITALS: BP 97/68
[2018-05-24] MEDS: HYDROcodone/APAP 5/325MG 1 TAB TABLET PO PRN ×4 (02:47→21:24)
[2018-05-24 03:55] VITALS: BP 97/72
[2018-05-24 07:00] VITALS: BP 131/85
[2018-05-24] MEDS: APIXABAN 5 MG TABLET. PO SCH ×2 (09:11→21:23)
[2018-05-24] MEDS: buPROPion XL 150 MG TAB.ER.24H. PO SCH (09:11)
[2018-05-24] MEDS: ALPRAZolam 1 MG TABLET PO PRN ×2 (09:11→21:23)
[2018-05-24] MEDS: PANTOPRAZOLE 40 MG TABLET.DR. PO SCH (09:11)
[2018-05-24] MEDS: CYANOCOBALAMIN (VITAMIN B-12) 1,000 MCG TABLET. PO SCH (09:12)
[2018-05-24 11:00] VITALS: BP 108/74
--- NOTE | 2018-05-24 12:05 | PDOC ---
PROGRESS NOTES Chief Complaint Chief Complaint Left side weakness, not clear etiology, mainly left leg 4/5 Dizziness. Falls., most towards to left side HLD. multipe PE Hx and DVT Hx. on eliquis Maribel Danlos syndrome Obesity. No evidence of acute CVA this time. plan: fu with neuro, MRI brain neg check tsh, vib12 dr. Ahn consult check neck and lumbar MRI, can be done as outpt too. the left leg weakness could 2/2 EDS cont home meds, on eliquis waiting for PTOT History of Present Illness History of Present Illness ROS: no fever, chills, chest pain c/o has been falling in the past 2 ds, mainly to left side, said 2/2 unsteady gait also c/o left side weakness, but hands seems ok to me, left leg slightly weaker 4/5 mild cough, no home o2 no smoking Vitals Vitals Vital Signs Date Time Temp Pulse Resp B/P (MAP) Pulse Ox O2 Delivery O2 Flow Rate FiO2 05/24/18 10:15 Room Air 05/24/18 08:00 2.0 05/24/18 07:00 97.8 100 18 131/85 (100) 97 97.8 Physical Exam Physical Exam bl upper ext normal left leg slightly weaker strenght 4/5, rt 5/5 General: Alert, Oriented X3, Cooperative Heart: Regular rate, Normal S1, Normal S2 Lungs: Clear Abdomen: Normal bowel sounds, Soft Extremities: No clubbing, No cyanosis Skin: No breakdown Labs LABS Laboratory Tests Test 05/23/18 12:30 Urine Collection Type Unknown Urine Color Yellow Urine Clarity Clear Urine pH 7.0 Urine Specific [place] 1.010 Urine Protein Negative mg/dL (NEG-TRACE) Urine Glucose (UA) Negative mg/dL (NEG) Urine Ketones (Stick) Negative mg/dL (NEG) Urine Blood Negative (NEG) Urine Nitrite Negative (NEG) Urine Bilirubin Negative (NEG) Urine Urobilinogen Dipstick 0.2 mg/dL (0.2 mg/dL) Urine Leukocyte Esterase Trace (NEG) Urine RBC 0 /HPF (0-2) Urine WBC Occ /HPF (0-4) Urine Bacteria Few /HPF (0-FEW) Assessment and Plan Assessmemt and Plan Problems Medical Problems: (1) Dizziness Status: Acute (2) Dyspnea Status: Acute (3) Left-sided weakness Status: Acute Comment Review of Relevant I have reviewed the following items bianca (where applicable) has been applied. Labs Laboratory Tests Test 05/23/18 11:56 05/23/18 12:05 05/23/18 12:30 Glucose (Fingerstick) 91 mg/dL (70-99) White Blood Count 7.7 x10^3/uL (4.0-11.0) Red Blood Count 4.30 x10^6/uL (3.50-5.40) Hemoglobin 11.0 g/dL (12.0-15.5) Hematocrit 33.9 % (36.0-47.0) Mean Corpuscular Volume 79 fL (79-100) Mean Corpuscular Hemoglobin 26 pg (25-35) Mean Corpuscular Hemoglobin Concent 32 g/dL (31-37) Red Cell Distribution Width 19.7 % (11.5-14.5) Platelet Count 242 x10^3/uL (140-400) Neutrophils (%) (Auto) 67 % (31-73) Lymphocytes (%) (Auto) 24 % (24-48) Monocytes (%) (Auto) 5 % (0-9) Eosinophils (%) (Auto) 4 % (0-3) Basophils (%) (Auto) 1 % (0-3) Neutrophils # (Auto) 5.2 x10^3uL (1.8-7.7) Lymphocytes # (Auto) 1.8 x10^3/uL (1.0-4.8) Monocytes # (Auto) 0.4 x10^3/uL (0.0-1.1) Eosinophils # (Auto) 0.3 x10^3/uL (0.0-0.7) Basophils # (Auto) 0.1 x10^3/uL (0.0-0.2) Sodium Level 144 mmol/L (136-145) Potassium Level 4.3 mmol/L (3.5-5.1) Chloride Level 105 mmol/L (98-107) Carbon Dioxide Level 30 mmol/L (21-32) Anion Gap 9 (6-14) Blood Urea Nitrogen 13 mg/dL (7-20) Creatinine 1.0 mg/dL (0.6-1.0) Estimated GFR (Cockcroft-Gault) 58.2 BUN/Creatinine Ratio 13 (6-20) Glucose Level 98 mg/dL (70-99) Calcium Level 8.9 mg/dL (8.5-10.1) Magnesium Level 2.3 mg/dL (1.8-2.4) Total Bilirubin 0.2 mg/dL (0.2-1.0) Aspartate Amino Transf (AST/SGOT) 12 U/L (15-37) Alanine Aminotransferase (ALT/SGPT) 16 U/L (14-59) Alkaline Phosphatase 139 U/L (46-116) Troponin I Quantitative < 0.017 ng/mL (0.000-0.055) Total Protein 6.6 g/dL (6.4-8.2) Albumin 3.8 g/dL (3.4-5.0) Albumin/Globulin Ratio 1.4 (1.0-1.7) Urine Collection Type Unknown Urine Color Yellow Urine Clarity Clear Urine pH 7.0 Urine Specific [place] 1.010 Urine Protein Negative mg/dL (NEG-TRACE) Urine Glucose (UA) Negative mg/dL (NEG) Urine Ketones (Stick) Negative mg/dL (NEG) Urine Blood Negative (NEG) Urine Nitrite Negative (NEG) Urine Bilirubin Negative (NEG) Urine Urobilinogen Dipstick 0.2 mg/dL (0.2 mg/dL) Urine Leukocyte Esterase Trace (NEG) Urine RBC 0 /HPF (0-2) Urine WBC Occ /HPF (0-4) Urine Bacteria Few /HPF (0-FEW) Laboratory Tests Test 05/23/18 12:30 Urine Collection Type Unknown Urine Color Yellow Urine Clarity Clear Urine pH 7.0 Urine Specific [place] 1.010 Urine Protein Negative mg/dL (NEG-TRACE) Urine Glucose (UA) Negative mg/dL (NEG) Urine Ketones (Stick) Negative mg/dL (NEG) Urine Blood Negative (NEG) Urine Nitrite Negative (NEG) Urine Bilirubin Negative (NEG) Urine Urobilinogen Dipstick 0.2 mg/dL (0.2 mg/dL) Urine Leukocyte Esterase Trace (NEG) Urine RBC 0 /HPF (0-2) Urine WBC Occ /HPF (0-4) Urine Bacteria Few /HPF (0-FEW) Medications Current Medications Iohexol (Omnipaque 300 Mg/ml) 100 ml 1X ONCE IV Last administered on at 14:30; Start 05/23/18 at 14:15; Stop 05/23/18 at 14:16; Status DC Info (CONTRAST GIVEN -- Rx MONITORING) 1 each PRN DAILY PRN MC SEE COMMENTS; Start 05/23/18 at 14:15; Stop 05/25/18 at 14:14 Ondansetron HCl (Zofran) 4 mg PRN Q8HRS PRN IV NAUSEA/VOMITING; Start at 15:15; Stop 05/24/18 at 15:14 Acetaminophen/ Hydrocodone Bitart (Lortab 5/325) 1 tab PRN Q4HRS PRN PO PAIN Last administered on 05/24/18at 09:11; Start 05/23/18 at 17:30 Alprazolam (Xanax) 0.5 mg PRN TID PRN PO ANXIETY / AGITATION Last administered on 05/23/18at 17:34; Start 05/23/18 at 17:30; Stop 05/23/18 at 17:41; Status DC Alprazolam (Xanax) 1 mg BID PRN PO ANXIETY Last administered on 05/24/18at 09: 11; Start 05/23/18 at 17:45 Apixaban (Eliquis) 5 mg BID PO Last administered on 05/24/18at 09:11; Start at 21:00 Simvastatin (Zocor) 10 mg QHS PO Last administered on 05/23/18at 21:04; Start 05/23/18 at 21:00 Bupropion HCl (Wellbutrin Xl) 300 mg DAILY PO Last administered on 05/24/18at 09:11; Start 05/24/18 at 09:00 Non-Formulary Medication (Cranberry Extract (Cranberry)) 250 mg DAILY PRN PO PROPHYLAXIS; Start 05/23/18 at 17:45; Status UNV Cyanocobalamin (Vitamin B-12) 500 mcg DAILY PO Last administered on 05/24/18at 09:12; Start 05/24/18 at 09:00 Pantoprazole Sodium (Protonix) 40 mg DAILYAC PO Last administered on at 09:11; Start 05/24/18 at 07:30 Active Scripts Active Reported Xanax (Alprazolam) 1 Mg Tablet 1 Tab PO BID PRN B-12 (Cyanocobalamin (Vitamin B-12)) 500 Mcg Tablet 500 Mcg PO DAILY PRN Cranberry (Cranberry Extract) 250 Mg Capsule 250 Mg PO DAILY PRN Protonix (Pantoprazole Sodium) 40 Mg Granpkt.dr 40 Mg PO DAILY PRN Simvastatin 10 Mg Tablet 1 Tab PO QHS PRN Wellbutrin Xl (Bupropion Hcl) 300 Mg Tab.er.24h 1 Tab PO DAILY PRN Lexapro (Escitalopram Oxalate) 20 Mg Tablet 60 Mg PO DAILY PRN Eliquis (Apixaban) 5 Mg Tablet 5 Mg PO BID Vitals/I & O Vital Sign - Last 24 Hours 05/23/18 05/23/18 05/23/18 05/23/18 12:11 12:14 13:05 13:35 Pulse 64 62 58 60 Resp 30 12 15 12 Pulse Ox 97 100 95 98 05/23/18 05/23/18 05/23/18 05/23/18 14:12 15:01 16:10 16:41 Temp 98.1 98.1 Pulse 66 64 62 67 Resp 16 18 B/P (MAP) 125/75 (92) Pulse Ox 99 97 88 O2 Delivery Room Air 05/23/18 05/23/18 05/23/18 05/23/18 17:06 17:27 17:35 19:05 Temp 97.9 97.9 Pulse 63 B/P (MAP) 118/47 (70) Pulse Ox 98 95 O2 Delivery Room Air Nasal Cannula Nasal Cannula Nasal Cannula O2 Flow Rate 2.0 2.0 2.0 05/23/18 05/23/18 05/23/18 05/24/18 20:00 21:04 23:28 02:47 Temp 97.6 97.6 Pulse 61 B/P (MAP) 97/68 (78) Pulse Ox 98 O2 Delivery Room Air Nasal Cannula Nasal Cannula Nasal Cannula O2 Flow Rate 2.0 2.0 2.0 05/24/18 05/24/18 05/24/18 05/24/18 03:54 03:55 07:00 08:00 Temp 97.9 97.8 97.9 97.8 Pulse 65 100 Resp 18 B/P (MAP) 97/72 (80) 131/85 (100) Pulse Ox 95 97 O2 Delivery Nasal Cannula Room Air O2 Flow Rate 2.0 2.0 2.0 05/24/18 05/24/18 09:11 10:15 O2 Delivery Room Air Room Air Intake and Output 05/23/18 05/23/18 05/24/18 15:01 23:01 07:01 Intake Total 390 ml 350 ml Balance 390 ml 350 ml KONRAD EASTMAN MD May 24, 2018 12:05
[2018-05-24] MEDS ORDERED: traMADol 50 MG TABLET PO PRN (12:15)
[2018-05-24] MEDS ORDERED: ALBUTEROL SULFATE 2.5 MG/3 ML NEBU. NEB PRN (12:15)
[2018-05-24] MEDS ORDERED: MORPHINE SULFATE 2 MG/ML VIAL. IV PRN (12:15)
[2018-05-24] MEDS ORDERED: DOCUSATE SODIUM 100 MG CAPSULE. PO PRN (12:15)
[2018-05-24] MEDS ORDERED: ACETAMINOPHEN 325 MG TABLET. PO PRN (12:15)
[2018-05-24] MEDS ORDERED: hydrALAZINE 20 MG/ML VIAL. IVP PRN (12:15)
[2018-05-24] MEDS ORDERED: ONDANSETRON PF 4 MG/2 ML VIAL. IV PRN (12:15)
[2018-05-24] MEDS ORDERED: ANTI-COAG MONITOR BY PHARMACY. MC PRN (13:15)
--- NOTE | 2018-05-24 13:53 | PDOC ---
PROGRESS NOTES Assessment Problems Medical Problems: (1) Dizziness Status: Acute (2) Dyspnea Status: Acute (3) Left-sided weakness Status: Acute Left side weakness, no sign of stroke. Dizziness, resolved. 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 Continue Zocor HS. I disagree with lumbar and cervical MRI, this is musculoskeletal issues in the left hip and knee, probably related to her Maribel Danlos I wrote an order for outpatient physical therapy Okay for discharge Subjective wants to go home Objective Vital Signs Date Time Temp Pulse Resp B/P (MAP) Pulse Ox O2 Delivery O2 Flow Rate FiO2 05/24/18 11:00 98.3 84 18 108/74 (85) 98.3 05/24/18 10:15 Room Air 05/24/18 08:00 2.0 05/24/18 07:00 97 Intake and Output 05/24/18 07:01 Intake Total 740 ml Balance 740 ml Intake Oral 740 ml # Voids 1 PHYSICAL EXAM Alert. Oriented to time, place and person. PERRL. EOMI. CN: no focal findings. Muscle tone: normal. Muscle strength: 5/5 while lying in bed DTR: 2+ Plantar reflex: Etc. Gait: Arthritic, antalgic, favoring left knee and left hip Sensory exam: no abnormal findings. No cerebellar signs elicited. Review of Relevant I have reviewed the following items bianca (where applicable) has been applied. Labs Laboratory Tests Test 05/23/18 11:56 05/23/18 12:05 05/23/18 12:30 05/24/18 11:21 Glucose (Fingerstick) 91 mg/dL (70-99) White Blood Count 7.7 x10^3/uL (4.0-11.0) Red Blood Count 4.30 x10^6/uL (3.50-5.40) Hemoglobin 11.0 g/dL (12.0-15.5) Hematocrit 33.9 % (36.0-47.0) Mean Corpuscular Volume 79 fL (79-100) Mean Corpuscular Hemoglobin 26 pg (25-35) Mean Corpuscular Hemoglobin Concent 32 g/dL (31-37) Red Cell Distribution Width 19.7 % (11.5-14.5) Platelet Count 242 x10^3/uL (140-400) Neutrophils (%) (Auto) 67 % (31-73) Lymphocytes (%) (Auto) 24 % (24-48) Monocytes (%) (Auto) 5 % (0-9) Eosinophils (%) (Auto) 4 % (0-3) Basophils (%) (Auto) 1 % (0-3) Neutrophils # (Auto) 5.2 x10^3uL (1.8-7.7) Lymphocytes # (Auto) 1.8 x10^3/uL (1.0-4.8) Monocytes # (Auto) 0.4 x10^3/uL (0.0-1.1) Eosinophils # (Auto) 0.3 x10^3/uL (0.0-0.7) Basophils # (Auto) 0.1 x10^3/uL (0.0-0.2) Sodium Level 144 mmol/L (136-145) Potassium Level 4.3 mmol/L (3.5-5.1) Chloride Level 105 mmol/L (98-107) Carbon Dioxide Level 30 mmol/L (21-32) Anion Gap 9 (6-14) Blood Urea Nitrogen 13 mg/dL (7-20) Creatinine 1.0 mg/dL (0.6-1.0) Estimated GFR (Cockcroft-Gault) 58.2 BUN/Creatinine Ratio 13 (6-20) Glucose Level 98 mg/dL (70-99) Calcium Level 8.9 mg/dL (8.5-10.1) Magnesium Level 2.3 mg/dL (1.8-2.4) Total Bilirubin 0.2 mg/dL (0.2-1.0) Aspartate Amino Transf (AST/SGOT) 12 U/L (15-37) Alanine Aminotransferase (ALT/SGPT) 16 U/L (14-59) Alkaline Phosphatase 139 U/L (46-116) Troponin I Quantitative < 0.017 ng/mL (0.000-0.055) Total Protein 6.6 g/dL (6.4-8.2) Albumin 3.8 g/dL (3.4-5.0) Albumin/Globulin Ratio 1.4 (1.0-1.7) Urine Collection Type Unknown Urine Color Yellow Urine Clarity Clear Urine pH 7.0 Urine Specific [place] 1.010 Urine Protein Negative mg/dL (NEG-TRACE) Urine Glucose (UA) Negative mg/dL (NEG) Urine Ketones (Stick) Negative mg/dL (NEG) Urine Blood Negative (NEG) Urine Nitrite Negative (NEG) Urine Bilirubin Negative (NEG) Urine Urobilinogen Dipstick 0.2 mg/dL (0.2 mg/dL) Urine Leukocyte Esterase Trace (NEG) Urine RBC 0 /HPF (0-2) Urine WBC Occ /HPF (0-4) Urine Bacteria Few /HPF (0-FEW) Thyroid Stimulating Hormone (TSH) 7.422 uIU/mL (0.358-3.74) Laboratory Tests Test 05/24/18 11:21 Thyroid Stimulating Hormone (TSH) 7.422 uIU/mL (0.358-3.74) Medications Current Medications Iohexol (Omnipaque 300 Mg/ml) 100 ml 1X ONCE IV Last administered on at 14:30; Start 05/23/18 at 14:15; Stop 05/23/18 at 14:16; Status DC Info (CONTRAST GIVEN -- Rx MONITORING) 1 each PRN DAILY PRN MC SEE COMMENTS; Start 05/23/18 at 14:15; Stop 05/25/18 at 14:14 Ondansetron HCl (Zofran) 4 mg PRN Q8HRS PRN IV NAUSEA/VOMITING; Start at 15:15; Stop 05/24/18 at 15:14 Acetaminophen/ Hydrocodone Bitart (Lortab 5/325) 1 tab PRN Q4HRS PRN PO PAIN Last administered on 05/24/18at 09:11; Start 05/23/18 at 17:30 Alprazolam (Xanax) 0.5 mg PRN TID PRN PO ANXIETY / AGITATION Last administered on 05/23/18at 17:34; Start 05/23/18 at 17:30; Stop 05/23/18 at 17:41; Status DC Alprazolam (Xanax) 1 mg BID PRN PO ANXIETY Last administered on 05/24/18at 09: 11; Start 05/23/18 at 17:45 Apixaban (Eliquis) 5 mg BID PO Last administered on 05/24/18at 09:11; Start at 21:00 Simvastatin (Zocor) 10 mg QHS PO Last administered on 05/23/18at 21:04; Start 05/23/18 at 21:00 Bupropion HCl (Wellbutrin Xl) 300 mg DAILY PO Last administered on 05/24/18at 09:11; Start 05/24/18 at 09:00 Non-Formulary Medication (Cranberry Extract (Cranberry)) 250 mg DAILY PRN PO PROPHYLAXIS; Start 05/23/18 at 17:45; Status UNV Cyanocobalamin (Vitamin B-12) 500 mcg DAILY PO Last administered on 05/24/18at 09:12; Start 05/24/18 at 09:00 Pantoprazole Sodium (Protonix) 40 mg DAILYAC PO Last administered on at 09:11; Start 05/24/18 at 07:30 Acetaminophen (Tylenol) 650 mg PRN Q6HRS PRN PO FEVER; Start 05/24/18 at 12:15 Ondansetron HCl (Zofran) 4 mg PRN Q6HRS PRN IV NAUSEA/VOMITING Last administered on 05/24/18at 13:01; Start 05/24/18 at 12:15 Morphine Sulfate (Morphine Sulfate) 2 mg PRN Q2HR PRN IV MODERATE TO SEVERE PAIN; Start 05/24/18 at 12:15 Tramadol HCl (Ultram) 50 mg PRN Q6HRS PRN PO MILD TO MODERATE PAIN; Start at 12:15 Hydralazine HCl (Apresoline Inj) 10 mg PRN Q4HRS PRN IVP ELEVATED BP, SEE COMMENTS; Start 05/24/18 at 12:15 Docusate Sodium (Colace) 100 mg PRN DAILY PRN PO CONSTIPATION; Start 05/24/18 at 12:15 Albuterol Sulfate (Ventolin Neb Soln) 2.5 mg PRN Q4HRS PRN NEB SHORTNESS OF BREATH; Start 05/24/18 at 12:15 Info (Anti-Coagulation Monitoring By Pharmacy) 1 each PRN DAILY PRN MC SEE COMMENTS Last administered on 05/24/18at 13:16; Start 05/24/18 at 13:15 Active Scripts Active Reported Xanax (Alprazolam) 1 Mg Tablet 1 Tab PO BID PRN B-12 (Cyanocobalamin (Vitamin B-12)) 500 Mcg Tablet 500 Mcg PO DAILY PRN Cranberry (Cranberry Extract) 250 Mg Capsule 250 Mg PO DAILY PRN Protonix (Pantoprazole Sodium) 40 Mg Granpkt.dr 40 Mg PO DAILY PRN Simvastatin 10 Mg Tablet 1 Tab PO QHS PRN Wellbutrin Xl (Bupropion Hcl) 300 Mg Tab.er.24h 1 Tab PO DAILY PRN Lexapro (Escitalopram Oxalate) 20 Mg Tablet 60 Mg PO DAILY PRN Eliquis (Apixaban) 5 Mg Tablet 5 Mg PO BID Vitals/I & O Vital Sign - Last 24 Hours 05/23/18 05/23/18 05/23/18 05/23/18 14:12 15:01 16:10 16:41 Temp 98.1 98.1 Pulse 66 64 62 67 Resp 16 18 B/P (MAP) 125/75 (92) Pulse Ox 99 97 88 O2 Delivery Room Air 05/23/18 05/23/18 05/23/18 05/23/18 17:06 17:27 17:35 19:05 Temp 97.9 97.9 Pulse 63 B/P (MAP) 118/47 (70) Pulse Ox 98 95 O2 Delivery Room Air Nasal Cannula Nasal Cannula Nasal Cannula O2 Flow Rate 2.0 2.0 2.0 05/23/18 05/23/18 05/23/18 05/24/18 20:00 21:04 23:28 02:47 Temp 97.6 97.6 Pulse 61 B/P (MAP) 97/68 (78) Pulse Ox 98 O2 Delivery Room Air Nasal Cannula Nasal Cannula Nasal Cannula O2 Flow Rate 2.0 2.0 2.0 05/24/18 05/24/18 05/24/18 05/24/18 03:54 03:55 07:00 08:00 Temp 97.9 97.8 97.9 97.8 Pulse 65 100 Resp 18 B/P (MAP) 97/72 (80) 131/85 (100) Pulse Ox 95 97 O2 Delivery Nasal Cannula Room Air O2 Flow Rate 2.0 2.0 2.0 05/24/18 05/24/18 05/24/18 09:11 10:15 11:00 Temp 98.3 98.3 Pulse 84 Resp 18 B/P (MAP) 108/74 (85) O2 Delivery Room Air Room Air Intake and Output 05/23/18 05/23/18 05/24/18 15:01 23:01 07:01 Intake Total 390 ml 350 ml Balance 390 ml 350 ml Images BRAIN W/O CONTRAST Multiplanar, multisequence images of the brain were obtained. Due to dental artifact, significant limitation in imaging of the anterior aspect of the cerebrum is noted on diffusion-weighted imaging. This may limit assessment for acute infarct as a result in this region. Ventricles are normal size. No midline shift or mass effect. [place] matter-white matter differentiation is normal. No infarct suspected on this limited exam. Impression: Unremarkable although limited MRI of the brain without contrast exam. ROSA MARIA SILVER MD May 24, 2018 13:53
[2018-05-24 15:00] VITALS: BP 124/89
[2018-05-24 19:25] VITALS: BP 111/70
[2018-05-24] MEDS: SIMVASTATIN 10 MG TABLET PO SCH (21:23)
[2018-05-24 23:20] VITALS: BP 98/63
[2018-05-25] MEDS: HYDROcodone/APAP 5/325MG 1 TAB TABLET PO PRN ×3 (03:22→15:47)
[2018-05-25 03:31] VITALS: BP 131/74
[2018-05-25 06:46] LABS: BASO % 1 % (0-3); EOS # 0.3 x10^3/uL (0.0-0.7); EOS % 5 % (0-3); HEMATOCRIT 31.1 % (36.0-47.0); HEMOGLOBIN 10.3 g/dL (12.0-15.5); LYMPH # 1.9 x10^3/uL (1.0-4.8); LYMPH % 32 % (24-48); MEAN CORPUSCULAR HEMOGLOBIN 26 pg (25-35); MEAN CORPUSCULAR HGB CONC 33 g/dL (31-37); MEAN CORPUSCULAR VOLUME 78 fL (79-100); MONO # 0.4 x10^3/uL (0.0-1.1); MONO % 7 % (0-9); NEUT # 3.2 x10^3uL (1.8-7.7); NEUT % 55 % (31-73); PLATELET COUNT 224 x10^3/uL (140-400); RED BLOOD COUNT 3.98 x10^6/uL (3.50-5.40); WHITE BLOOD COUNT 5.8 x10^3/uL (4.0-11.0)
[2018-05-25 06:47] LABS: CALCIUM 8.9 mg/dL (8.5-10.1); GFR 58.2; POTASSIUM 4.2 mmol/L (3.5-5.1)
[2018-05-25 06:50] VITALS: BP 98/69
[2018-05-25] MEDS: buPROPion XL 150 MG TAB.ER.24H. PO SCH (08:38)
[2018-05-25] MEDS: ALPRAZolam 1 MG TABLET PO PRN (08:38)
[2018-05-25] MEDS: PANTOPRAZOLE 40 MG TABLET.DR. PO SCH (08:39)
[2018-05-25] MEDS: CYANOCOBALAMIN (VITAMIN B-12) 1,000 MCG TABLET. PO SCH (08:39)
[2018-05-25] MEDS: APIXABAN 5 MG TABLET. PO SCH (08:40)
--- NOTE | 2018-05-25 10:22 | DISCH ---
DISCHARGE WITH HOME HEALTH DISCHARGE INFORMATION: Discharge Date: May 25, 2018 Final Diagnosis: Problems Medical Problems: (1) Dizziness Status: Acute (2) Dyspnea Status: Acute (3) Left-sided weakness Status: Acute Condition on Discharge: Stable CODE STATUS: Code Status: Full HOME HEALTH: Face to Face: I certify this patient is under my care and that I, or a nurse practitioner or physician's surveyor instrument assistant working with me, had a face to face encounter that meets the physician face to face encounter requirements with this patient on 05/25 Medical Complications: Falls Physical Therapy For: Evalulation/Treatment Occupational Therapy For: Evaluation/Treatment POST DISCHARGE ORDERS: Activity Instructions for Disc: Activity as tolerated Weight Bearing Status after Di: Full weight bearing DIET AFTER DISCHARGE: Cardiac FOLLOW-UP: Follow up with: est. primary care, sonu Fabio/ with Dr. Brock TREATMENT/EQUIPMENT ORDERS: Adaptive Equipment Issued: Front wheeled walker CERTIFICATION STATEMENT: Certification Statement: Certification Statement: Based on the above finding, I certify that this patient is confined to the home and needs intermittent halfway care, physical therapy and/or speech therapy, or continues to need occupational therapy.~ This patient is under my care, and I have initiated the establishment of the plan of care.~ This patient will be followed by myself or a community physician who will periodically review the plan of care. Home Meds Reported Medications Alprazolam (XANAX) 1 Mg Tablet, 1 TAB PO BID PRN for ANXIETY, #60 TAB 05/23/18 Cyanocobalamin (Vitamin B-12) (B-12) 500 Mcg Tablet, 500 MCG PO DAILY PRN for SUPPLEMENT, TAB 05/23/18 Cranberry Extract (CRANBERRY) 250 Mg Capsule, 250 MG PO DAILY PRN for PROPHYLAXIS, CAP 05/23/18 Pantoprazole Sodium (PROTONIX) 40 Mg Granpkt.dr, 40 MG PO DAILY PRN for gerd, TAB 05/23/18 Simvastatin (SIMVASTATIN) 10 Mg Tablet, 1 TAB PO QHS PRN for HIGH CHOLESTEROL, # 30 TAB 5 Refills 05/23/18 Bupropion Hcl (WELLBUTRIN XL) 300 Mg Tab.er.24h, 1 TAB PO DAILY PRN for DEPRESSION, #90 TAB 3 Refills 05/23/18 Escitalopram Oxalate (LEXAPRO) 20 Mg Tablet, 60 MG PO DAILY PRN for ANXIETY / AGITATION, TAB 0 Refills 05/23/18 Apixaban (ELIQUIS) 5 Mg Tablet, 5 MG PO BID for dvt/pe, TAB 05/23/18 ANNABEL HINSON MD May 25, 2018 10:22
[2018-05-25 10:59] VITALS: BP 139/81
--- NOTE | 2018-05-25 12:06 | PDOC ---
PULMONARY PROGRESS NOTES Vitals Vital Signs Date Time Temp Pulse Resp B/P (MAP) Pulse Ox O2 Delivery O2 Flow Rate FiO2 05/25/18 10:59 98.0 87 18 139/81 (100) 92 Room Air 98.0 05/24/18 08:00 2.0 Lungs: Clear Labs Laboratory Tests Test 05/23/18 12:30 05/24/18 11:21 05/25/18 05:20 Urine Collection Type Unknown Urine Color Yellow Urine Clarity Clear Urine pH 7.0 Urine Specific [place] 1.010 Urine Protein Negative mg/dL (NEG-TRACE) Urine Glucose (UA) Negative mg/dL (NEG) Urine Ketones (Stick) Negative mg/dL (NEG) Urine Blood Negative (NEG) Urine Nitrite Negative (NEG) Urine Bilirubin Negative (NEG) Urine Urobilinogen Dipstick 0.2 mg/dL (0.2 mg/dL) Urine Leukocyte Esterase Trace (NEG) Urine RBC 0 /HPF (0-2) Urine WBC Occ /HPF (0-4) Urine Bacteria Few /HPF (0-FEW) Thyroid Stimulating Hormone (TSH) 7.422 uIU/mL (0.358-3.74) White Blood Count 5.8 x10^3/uL (4.0-11.0) Red Blood Count 3.98 x10^6/uL (3.50-5.40) Hemoglobin 10.3 g/dL (12.0-15.5) Hematocrit 31.1 % (36.0-47.0) Mean Corpuscular Volume 78 fL (79-100) Mean Corpuscular Hemoglobin 26 pg (25-35) Mean Corpuscular Hemoglobin Concent 33 g/dL (31-37) Red Cell Distribution Width 20.0 % (11.5-14.5) Platelet Count 224 x10^3/uL (140-400) Neutrophils (%) (Auto) 55 % (31-73) Lymphocytes (%) (Auto) 32 % (24-48) Monocytes (%) (Auto) 7 % (0-9) Eosinophils (%) (Auto) 5 % (0-3) Basophils (%) (Auto) 1 % (0-3) Neutrophils # (Auto) 3.2 x10^3uL (1.8-7.7) Lymphocytes # (Auto) 1.9 x10^3/uL (1.0-4.8) Monocytes # (Auto) 0.4 x10^3/uL (0.0-1.1) Eosinophils # (Auto) 0.3 x10^3/uL (0.0-0.7) Basophils # (Auto) 0.0 x10^3/uL (0.0-0.2) Sodium Level 141 mmol/L (136-145) Potassium Level 4.2 mmol/L (3.5-5.1) Chloride Level 105 mmol/L (98-107) Carbon Dioxide Level 31 mmol/L (21-32) Anion Gap 5 (6-14) Blood Urea Nitrogen 15 mg/dL (7-20) Creatinine 1.0 mg/dL (0.6-1.0) Estimated GFR (Cockcroft-Gault) 58.2 Glucose Level 94 mg/dL (70-99) Calcium Level 8.9 mg/dL (8.5-10.1) Laboratory Tests Test 05/25/18 05:20 White Blood Count 5.8 x10^3/uL (4.0-11.0) Red Blood Count 3.98 x10^6/uL (3.50-5.40) Hemoglobin 10.3 g/dL (12.0-15.5) Hematocrit 31.1 % (36.0-47.0) Mean Corpuscular Volume 78 fL (79-100) Mean Corpuscular Hemoglobin 26 pg (25-35) Mean Corpuscular Hemoglobin Concent 33 g/dL (31-37) Red Cell Distribution Width 20.0 % (11.5-14.5) Platelet Count 224 x10^3/uL (140-400) Neutrophils (%) (Auto) 55 % (31-73) Lymphocytes (%) (Auto) 32 % (24-48) Monocytes (%) (Auto) 7 % (0-9) Eosinophils (%) (Auto) 5 % (0-3) Basophils (%) (Auto) 1 % (0-3) Neutrophils # (Auto) 3.2 x10^3uL (1.8-7.7) Lymphocytes # (Auto) 1.9 x10^3/uL (1.0-4.8) Monocytes # (Auto) 0.4 x10^3/uL (0.0-1.1) Eosinophils # (Auto) 0.3 x10^3/uL (0.0-0.7) Basophils # (Auto) 0.0 x10^3/uL (0.0-0.2) Sodium Level 141 mmol/L (136-145) Potassium Level 4.2 mmol/L (3.5-5.1) Chloride Level 105 mmol/L (98-107) Carbon Dioxide Level 31 mmol/L (21-32) Anion Gap 5 (6-14) Blood Urea Nitrogen 15 mg/dL (7-20) Creatinine 1.0 mg/dL (0.6-1.0) Estimated GFR (Cockcroft-Gault) 58.2 Glucose Level 94 mg/dL (70-99) Calcium Level 8.9 mg/dL (8.5-10.1) Medications Active Scripts Medications Dose Route/Sig Max Daily Dose Days Date Category Xanax (Alprazolam) 1 Mg Tablet 1 Tab PO BID PRN 05/23/18 Reported B-12 (Cyanocobalamin (Vitamin B-12)) 500 Mcg Tablet 500 Mcg PO DAILY PRN 05/23/18 Reported Cranberry (Cranberry Extract) 250 Mg Capsule 250 Mg PO DAILY PRN 05/23/18 Reported Protonix (Pantoprazole Sodium) 40 Mg Granpkt.dr 40 Mg PO DAILY PRN 05/23/18 Reported Simvastatin 10 Mg Tablet 1 Tab PO QHS PRN 05/23/18 Reported Wellbutrin Xl (Bupropion Hcl) 300 Mg Tab.er.24h 1 Tab PO DAILY PRN 05/23/18 Reported Lexapro (Escitalopram Oxalate) 20 Mg Tablet 60 Mg PO DAILY PRN 05/23/18 Reported Eliquis (Apixaban) 5 Mg Tablet 5 Mg PO BID 05/23/18 Reported Impression . DICTATED OK TO D/C FOLLOW UP IN JUN/JUL LINK GARCIA MD May 25, 2018 12:06
--- NOTE | 2018-05-25 14:52 | PDOC ---
PROGRESS NOTES Assessment Problems Medical Problems: (1) Dizziness Status: Acute (2) Dyspnea Status: Acute (3) Left-sided weakness Status: Acute Left side weakness, no sign of stroke. Dizziness, resolved. 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 Continue Zocor HS. Outpatient physical therapy Okay for discharge Follow-up with me in 4-6 weeks if no better, I would then consider EMG of the left lower extremity and imaging of the lumbar spine Subjective Still has left hip and knee pain Objective Vital Signs Date Time Temp Pulse Resp B/P (MAP) Pulse Ox O2 Delivery O2 Flow Rate FiO2 05/25/18 10:59 98.0 87 18 139/81 (100) 92 Room Air 98.0 05/25/18 08:00 2.0 Intake and Output 05/25/18 07:01 Intake Total 500 ml Balance 500 ml Intake Oral 500 ml # Voids 5 PHYSICAL EXAM Alert. Oriented to time, place and person. PERRL. EOMI. CN: no focal findings. Muscle tone: normal. Muscle strength: 5/5 while lying in bed DTR: 2+ Plantar reflex: Etc. Gait: Arthritic, antalgic, favoring left knee and left hip Sensory exam: patchy loss, left calf. No cerebellar signs elicited. Review of Relevant I have reviewed the following items bianca (where applicable) has been applied. Labs Laboratory Tests Test 05/24/18 11:21 05/25/18 05:20 Thyroid Stimulating Hormone (TSH) 7.422 uIU/mL (0.358-3.74) White Blood Count 5.8 x10^3/uL (4.0-11.0) Red Blood Count 3.98 x10^6/uL (3.50-5.40) Hemoglobin 10.3 g/dL (12.0-15.5) Hematocrit 31.1 % (36.0-47.0) Mean Corpuscular Volume 78 fL (79-100) Mean Corpuscular Hemoglobin 26 pg (25-35) Mean Corpuscular Hemoglobin Concent 33 g/dL (31-37) Red Cell Distribution Width 20.0 % (11.5-14.5) Platelet Count 224 x10^3/uL (140-400) Neutrophils (%) (Auto) 55 % (31-73) Lymphocytes (%) (Auto) 32 % (24-48) Monocytes (%) (Auto) 7 % (0-9) Eosinophils (%) (Auto) 5 % (0-3) Basophils (%) (Auto) 1 % (0-3) Neutrophils # (Auto) 3.2 x10^3uL (1.8-7.7) Lymphocytes # (Auto) 1.9 x10^3/uL (1.0-4.8) Monocytes # (Auto) 0.4 x10^3/uL (0.0-1.1) Eosinophils # (Auto) 0.3 x10^3/uL (0.0-0.7) Basophils # (Auto) 0.0 x10^3/uL (0.0-0.2) Sodium Level 141 mmol/L (136-145) Potassium Level 4.2 mmol/L (3.5-5.1) Chloride Level 105 mmol/L (98-107) Carbon Dioxide Level 31 mmol/L (21-32) Anion Gap 5 (6-14) Blood Urea Nitrogen 15 mg/dL (7-20) Creatinine 1.0 mg/dL (0.6-1.0) Estimated GFR (Cockcroft-Gault) 58.2 Glucose Level 94 mg/dL (70-99) Calcium Level 8.9 mg/dL (8.5-10.1) Laboratory Tests Test 05/25/18 05:20 White Blood Count 5.8 x10^3/uL (4.0-11.0) Red Blood Count 3.98 x10^6/uL (3.50-5.40) Hemoglobin 10.3 g/dL (12.0-15.5) Hematocrit 31.1 % (36.0-47.0) Mean Corpuscular Volume 78 fL (79-100) Mean Corpuscular Hemoglobin 26 pg (25-35) Mean Corpuscular Hemoglobin Concent 33 g/dL (31-37) Red Cell Distribution Width 20.0 % (11.5-14.5) Platelet Count 224 x10^3/uL (140-400) Neutrophils (%) (Auto) 55 % (31-73) Lymphocytes (%) (Auto) 32 % (24-48) Monocytes (%) (Auto) 7 % (0-9) Eosinophils (%) (Auto) 5 % (0-3) Basophils (%) (Auto) 1 % (0-3) Neutrophils # (Auto) 3.2 x10^3uL (1.8-7.7) Lymphocytes # (Auto) 1.9 x10^3/uL (1.0-4.8) Monocytes # (Auto) 0.4 x10^3/uL (0.0-1.1) Eosinophils # (Auto) 0.3 x10^3/uL (0.0-0.7) Basophils # (Auto) 0.0 x10^3/uL (0.0-0.2) Sodium Level 141 mmol/L (136-145) Potassium Level 4.2 mmol/L (3.5-5.1) Chloride Level 105 mmol/L (98-107) Carbon Dioxide Level 31 mmol/L (21-32) Anion Gap 5 (6-14) Blood Urea Nitrogen 15 mg/dL (7-20) Creatinine 1.0 mg/dL (0.6-1.0) Estimated GFR (Cockcroft-Gault) 58.2 Glucose Level 94 mg/dL (70-99) Calcium Level 8.9 mg/dL (8.5-10.1) Microbiology 05/23/18 Urine Culture - Final, Complete 05/23/18 Urine Culture Result 1 (ENRRIQUE) - Final, Complete Medications Current Medications Iohexol (Omnipaque 300 Mg/ml) 100 ml 1X ONCE IV Last administered on at 14:30; Start 05/23/18 at 14:15; Stop 05/23/18 at 14:16; Status DC Info (CONTRAST GIVEN -- Rx MONITORING) 1 each PRN DAILY PRN MC SEE COMMENTS; Start 05/23/18 at 14:15; Stop 05/25/18 at 14:14; Status DC Ondansetron HCl (Zofran) 4 mg PRN Q8HRS PRN IV NAUSEA/VOMITING; Start at 15:15; Stop 05/24/18 at 15:14; Status DC Acetaminophen/ Hydrocodone Bitart (Lortab 5/325) 1 tab PRN Q4HRS PRN PO PAIN Last administered on 05/25/18 08:37; Start 05/23/18 at 17:30 Alprazolam (Xanax) 0.5 mg PRN TID PRN PO ANXIETY / AGITATION Last administered on 05/23/18at 17:34; Start 05/23/18 at 17:30; Stop 05/23/18 at 17:41; Status DC Alprazolam (Xanax) 1 mg BID PRN PO ANXIETY Last administered on 05/25/18at 08: 38; Start 05/23/18 at 17:45 Apixaban (Eliquis) 5 mg BID PO Last administered on 05/25/18 08:40; Start at 21:00 Simvastatin (Zocor) 10 mg QHS PO Last administered on 05/24/18at 21:23; Start 05/23/18 at 21:00 Bupropion HCl (Wellbutrin Xl) 300 mg DAILY PO Last administered on 05/25/18at 08:38; Start 05/24/18 at 09:00 Non-Formulary Medication (Cranberry Extract (Cranberry)) 250 mg DAILY PRN PO PROPHYLAXIS; Start 05/23/18 at 17:45; Status UNV Cyanocobalamin (Vitamin B-12) 500 mcg DAILY PO Last administered on 05/25/18at 08:39; Start 05/24/18 at 09:00 Pantoprazole Sodium (Protonix) 40 mg DAILYAC PO Last administered on at 08:39; Start 05/24/18 at 07:30 Acetaminophen (Tylenol) 650 mg PRN Q6HRS PRN PO FEVER; Start 05/24/18 at 12:15 Ondansetron HCl (Zofran) 4 mg PRN Q6HRS PRN IV NAUSEA/VOMITING Last administered on 05/24/18at 13:01; Start 05/24/18 at 12:15 Morphine Sulfate (Morphine Sulfate) 2 mg PRN Q2HR PRN IV MODERATE TO SEVERE PAIN; Start 05/24/18 at 12:15 Tramadol HCl (Ultram) 50 mg PRN Q6HRS PRN PO MILD TO MODERATE PAIN; Start at 12:15 Hydralazine HCl (Apresoline Inj) 10 mg PRN Q4HRS PRN IVP ELEVATED BP, SEE COMMENTS; Start 05/24/18 at 12:15 Docusate Sodium (Colace) 100 mg PRN DAILY PRN PO CONSTIPATION; Start 05/24/18 at 12:15 Albuterol Sulfate (Ventolin Neb Soln) 2.5 mg PRN Q4HRS PRN NEB SHORTNESS OF BREATH; Start 05/24/18 at 12:15 Info (Anti-Coagulation Monitoring By Pharmacy) 1 each PRN DAILY PRN MC SEE COMMENTS Last administered on 05/24/18at 13:16; Start 05/24/18 at 13:15 Active Scripts Active Reported Xanax (Alprazolam) 1 Mg Tablet 1 Tab PO BID PRN B-12 (Cyanocobalamin (Vitamin B-12)) 500 Mcg Tablet 500 Mcg PO DAILY PRN Cranberry (Cranberry Extract) 250 Mg Capsule 250 Mg PO DAILY PRN Protonix (Pantoprazole Sodium) 40 Mg Granpkt.dr 40 Mg PO DAILY PRN Simvastatin 10 Mg Tablet 1 Tab PO QHS PRN Wellbutrin Xl (Bupropion Hcl) 300 Mg Tab.er.24h 1 Tab PO DAILY PRN Lexapro (Escitalopram Oxalate) 20 Mg Tablet 60 Mg PO DAILY PRN Eliquis (Apixaban) 5 Mg Tablet 5 Mg PO BID Vitals/I & O Vital Sign - Last 24 Hours 05/24/18 05/24/18 05/24/18 05/24/18 15:00 16:54 19:25 20:00 Temp 98.3 98.0 98.3 98.0 Pulse 97 81 Resp 18 16 B/P (MAP) 124/89 (101) 111/70 (84) Pulse Ox 97 95 O2 Delivery Room Air Room Air Room Air 05/24/18 05/24/18 05/25/18 05/25/18 21:24 23:20 03:22 03:31 Temp 98.4 98.2 98.4 98.2 Pulse 67 77 Resp 16 16 B/P (MAP) 98/63 (75) 131/74 (93) Pulse Ox 97 95 O2 Delivery Room Air Room Air Room Air Room Air 05/25/18 05/25/18 05/25/18 05/25/18 06:50 08:00 08:37 09:38 Temp 97.6 97.6 Pulse 64 Resp 17 B/P (MAP) 98/69 (79) Pulse Ox 97 O2 Delivery Room Air Room Air Room Air Room Air O2 Flow Rate 2.0 05/25/18 10:59 Temp 98.0 98.0 Pulse 87 Resp 18 B/P (MAP) 139/81 (100) Pulse Ox 92 O2 Delivery Room Air Intake and Output 05/24/18 05/24/18 05/25/18 15:01 23:01 07:01 Intake Total 200 ml 300 ml Balance 200 ml 300 ml ROSA MARIA SILVER MD May 25, 2018 14:52
--- NOTE | 2018-05-25 21:28 | CONS ---
DATE OF CONSULTATION: 05/25/2018 ATTENDING PHYSICIAN: Brown Vega M.D. REASON FOR CONSULTATION: The patient is seen in Pulmonary consultation at the request of Dr. Mckeon for history of multiple PE, on chronic anticoagulation. HISTORY OF PRESENT ILLNESS: The patient is a 52-year-old female with a history of multiple PE. She is on chronic anticoagulation. She also has a history of Maribel-Danlos syndrome, hypermobility. She presented because she was having some left-sided weakness and dizziness and slight shortness of breath. She underwent CT angiogram, which revealed no evidence of pulmonary embolism. 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 She smoked for a very short period of time. At one point, she had influenza and went home on some nebulized treatments, otherwise, does not utilize any bronchodilators. There is no prior history of asthma. She does have some seasonal allergies. PAST MEDICAL HISTORY: 1. Maribel-Danlos syndrome with hypermobility. 2. Tobacco dependence, in remission. The patient smoked for a very short period of time. 3. Allergic rhinitis. 4. Multiple PEs and DVT, on chronic anticoagulation. 5. History of gastrointestinal bleed. 6. Arthritis. PAST SURGICAL HISTORY: Status post cholecystectomy and hysterectomy. SOCIAL HISTORY: Socially, she denies any alcohol or tobacco use at this time. FAMILY HISTORY: Sister with Maribel-Danlos syndrome. ALLERGIES: To PENICILLIN. REVIEW OF SYSTEMS: As indicated above, otherwise, a 10-point system was reviewed and negative. PHYSICAL EXAMINATION: GENERAL: The patient was in no respiratory distress. VITAL SIGNS: Stable. O2 saturation was greater than 92%. HEENT: Eyes, the sclerae were nonicteric. NECK: Jugular venous distention was not elevated. No lymphadenopathy. CHEST: Full expansion. LUNGS: Adequate airway flow with no wheezes. CARDIOVASCULAR: Regular rate and rhythm with S1 and S2. No S3. ABDOMEN: Soft, nontender and nondistended. EXTREMITIES: No clubbing, cyanosis or edema. NEUROLOGICAL: The patient was awake, alert and following commands. A detailed neuro exam was not performed. LABORATORY DATA: Labs were reviewed. White count was normal. Hemoglobin and hematocrit were noted. Electrolytes were normal. RADIOLOGICAL DATA: A CT angiogram reviewed, no acute PE. IMPRESSION: 1. History of recurrent deep venous thrombosis, pulmonary embolism, on chronic anticoagulation. Current CT revealed no evidence of pulmonary embolism. 2. Intermittent periods of dyspnea, suspect mild chronic obstructive pulmonary disease, the patient to discharge home on p.r.n. albuterol. 3. Maribel-Danlos syndrome, hypermobility per neurologist. The patient is to undergo outpatient physical therapy. PLAN: From a pulmonary standpoint of view, the patient is stable enough to be discharged and follow up in my office in June,, with outpatient pulmonary function testing. LINK GARCIA MD DR: CARRIE/kinza JOB#: [id number] / [id number]
== END 2018-05-25 13:00 | disposition home health service (06) | DRG 149 ==
LOC: ER 11:32 → 6 SOUTH 15:10
PROVIDERS: ADMIT Family Medicine; ATTEND Family Medicine
DX: R42 Dizziness and giddiness (principal); D68.59 Other primary thrombophilia; Q79.6 Ehlers-Danlos syndromes; M19.90 Unspecified osteoarthritis, unspecified site; R29.6 Repeated falls; I71.2 Thoracic aortic aneurysm, without rupture; E66.9 Obesity, unspecified; Z68.29 Body mass index [BMI] 29.0-29.9, adult; Z86.718 Personal history of other venous thrombosis and embolism; Z87.11 Personal history of peptic ulcer disease; Z90.710 Acquired absence of both cervix and uterus; Z90.49 Acquired absence of other specified parts of digestive tract; Z79.01 Long term (current) use of anticoagulants; Z88.0 Allergy status to penicillin; Z86.711 Personal history of pulmonary embolism; Z87.891 Personal history of nicotine dependence
CPT/HCPCS: 36415; 70450; 70551; 71045; 71275; 73502; 80048; 80053; 81001; 82607; 82962; 83735; 84443; 84484; 85025; 87086; 93005; 94760; J2405; Q9967; 97530; 99285-25